=== PATIENT | male | born 1945 | race Asian ===

== ENCOUNTER 2021-07-14 20:39 | Emergency (ER) | payer MEDICARE, MEDICAID ==
[~2021-07-14] VITALS: Ht 167.6 cm; Wt 63.5 kg
[~2021-07-14 20:39] MED LIST: ALLO100T PO; ASPI300S4 PO; CLOP75TA28 PO; DIP25C PO; FENO160T8 PO; MET50T PO; METH4PAK26 PO; PIOG1TAB36 PO; SIMV10TA2 PO
[2021-07-14 21:38] LABS: Basophils # (auto) 0.1 10 ^3/uL (0-0.2); Basophils % (auto) 1.2 % (0.0-2.0); Eosinophils # (auto) 0.3 10 ^3/uL (0-0.8); Eosinophils % (auto) 4.4 % (0.0-7.0); Hematocrit 40.8 % (41.0-53.0); Lymphocytes # (auto) 1.2 10 ^3/uL (0.4-5.4); Lymphocytes % (auto) 16.6 % (10.0-50.0); Mean Corpuscular Hemoglobin 33.8 pg (28.0-32.0); Mean Corpuscular Hgb Conc. 34.2 g/dL (32.0-36.0); Mean Corpuscular Volume 98.7 fL (80.0-100.0); Monocytes # (auto) 0.6 10 ^3/uL (0-1.3); Monocytes % (auto) 7.6 % (0.0-12.0); Neutrophils # (auto) 5.1 10 ^3/uL (1.6-8.6); Neutrophils % (auto) 70.2 % (37.0-80.0); Red Blood Cells 4.14 10^6/uL (4.5-5.90); Red Cell Distribution Width 13.7 % (11.8-14.3); White Blood Cell 7.3 10^3/uL (4.4-10.8)
[2021-07-14 21:52] LABS: Calcium 9.3 mg/dL (8.5-10.1); Potassium 3.9 mmol/L (3.5-5.1)
[2021-07-14 21:56] LABS: Bilirubin, Total 0.3 mg/dL (0.2-1.0); Total Protein 8.2 g/dL (6.4-8.2)
[2021-07-14] MEDS ORDERED: TETANUS-DIPTH-ACEL PERTUSSIS 0.5ML SYR Tdap IM ONE (22:45)
[2021-07-14] MEDS ORDERED: ceFAZolin IM 1GM/2.5ML STERILE WATER IM ONE (23:15)
[2021-07-14] MEDS ORDERED: ceFAZolin 1GM VL ONE (23:42)
[2021-07-15 00:18] VITALS: BP 154/73
== END 2021-07-15 00:24 | disposition home or self-care (01) ==
LOC: ER 20:39 → EDBD 20:39 → ER 07-15 00:18
DX: S01.111A Laceration without foreign body of right eyelid and periocular area, initial encounter (principal); I10 Essential (primary) hypertension; M10.9 Gout, unspecified; E11.9 Type 2 diabetes mellitus without complications; Z86.73 Personal history of transient ischemic attack (TIA), and cerebral infarction without residual deficits; Z79.82 Long term (current) use of aspirin; Z79.899 Other long term (current) drug therapy; W19.XXXA Unspecified fall, initial encounter; Y93.89 Activity, other specified; Y92.89 Other specified places as the place of occurrence of the external cause; Y99.8 Other external cause status
CPT/HCPCS: 12013; 36415; 70450; 70486; 72125; 80053; 83880; 84484; 85025; 90471; 90715; 93005; 96372; 99285; J0690; J2001; 99152

== ENCOUNTER 2023-12-01 07:57 | Emergency (ER) | payer MEDICARE, MEDICAID ==
[~2023-12-01] VITALS: Ht 170.2 cm; Wt 79.8 kg
[~2023-12-01 07:57] MED LIST changes: -DIP25C PO; +DIPH25CA51 PO; +FENO160T PO; -FENO160T8 PO; +SIMV-268 PO; -SIMV10TA2 PO
[2023-12-01 08:32] LABS: Urine Bacteria None Seen /hpf (None Seen); Urine WBC None Seen /hpf (0 - 3)
[2023-12-01 08:40] VITALS: TEMP 98.6
[2023-12-01 08:50] LABS: Urine Blood TRACE /uL (Negative); Urine Clarity Clear (Clear); Urine Color Yellow (Yellow); Urine Hyaline Cast FEW /lpf (0 - 2); Urine Protein, UAD 2+ (Negative); Urine Urobilinogen Normal (Negative)
[2023-12-01 08:55] LABS: Basophils # (auto) 0 10 ^3/uL (0-0.2); Eosinophils # (auto) 0.3 10 ^3/uL (0-0.8); Monocytes # (auto) 0.6 10 ^3/uL (0-1.3); Platelet Count (auto) 205 10^3/uL (140-450)
[2023-12-01 09:07] LABS: Basophils % (auto) 0.9 % (0.0-2.0); Eosinophils % (auto) 6.7 % (0.0-7.0); Hematocrit 39.5 % (41.0-53.0); Hemoglobin 13.4 g/dL (13.5-17.5); Lymphocytes # (auto) 1.1 10 ^3/uL (0.4-5.4); Mean Corpuscular Hemoglobin 34.4 pg (28.0-32.0); Mean Corpuscular Hgb Conc. 33.9 g/dL (32.0-36.0); Mean Corpuscular Volume 101.4 fL (80.0-100.0); Monocytes % (auto) 12.5 % (0.0-12.0); Neutrophils % (auto) 58.9 % (37.0-80.0); Red Cell Distribution Width 14.2 % (11.8-14.3)
[2023-12-01 09:15] LABS: Alanine Aminotransferase 22 U/L (7-40); Albumin 4.5 g/dL (3.2-4.8); Alkaline Phosphatase 75 U/L (46-116); Anion Gap 8 (5-15); Aspartate Aminotransferase 25 U/L (13-40); BUN/Creatinine Ratio 14.5 (10.0-20.0); Blood Urea Nitrogen 25 mg/dL (9-23); Calcium 9.9 mg/dL (8.7-10.4); Carbon Dioxide 24 mmol/L (20-31); Chloride 102 mmol/L (98-107); Glucose 101 mg/dL (74-106); Magnesium 1.9 mg/dL (1.6-2.6); Potassium 4.2 mmol/L (3.5-5.1); Sodium 134 mmol/L (136-145)
[2023-12-01 09:16] LABS: Bilirubin, Total 0.4 mg/dL (0.2-1.0); Total Protein 7.3 g/dL (5.7-8.2)
[2023-12-01 10:38] VITALS: BP 164/73; PULSE 96; RESP 17; O2SAT 97
[2023-12-01 11:13] LABS: Lipase 76 U/L (12-53)
== END 2023-12-01 12:15 | disposition home or self-care (01) ==
LOC: ER 07:57
DX: K80.70 Calculus of gallbladder and bile duct without cholecystitis without obstruction (principal); E11.22 Type 2 diabetes mellitus with diabetic chronic kidney disease; I12.9 Hypertensive chronic kidney disease with stage 1 through stage 4 chronic kidney disease, or unspecified chronic kidney disease; N18.9 Chronic kidney disease, unspecified; Z79.02 Long term (current) use of antithrombotics/antiplatelets; Z79.82 Long term (current) use of aspirin; Z79.84 Long term (current) use of oral hypoglycemic drugs; Z86.73 Personal history of transient ischemic attack (TIA), and cerebral infarction without residual deficits
CPT/HCPCS: 36415; 76705; 80053; 81001; 83690; 83735; 84484; 85025; 93005; A4565